=== PATIENT | female | born 1985 | race Caucasian/White ===

== ENCOUNTER 2019-10-26 15:14 | Emergency (ER) | payer MEDICAID ==
[~2019-10-26] VITALS: Ht 160 cm; Wt 118.2 kg
[2019-10-26 15:37] VITALS: Ht 160 cm; Wt 118.2 kg
[2019-10-26] MEDS ORDERED: BUSPAR5 MG (15:39)
[2019-10-26 16:35] LABS: BASOPHILS 0.3 % (0-2); EOSINOPHILS 2.8 % (0-7); HEMATOCRIT 49.2 % (36.0-48.0); IMMATURE GRANULOCYTES 0.2 % (0-5); MCH 29.4 pg (26.0-34.0); MCHC 32.5 g/dL (31.0-37.0); MCV 90.3 fL (80.0-100.0); MEAN PLATELET VOLUME 9.8 fL (7.4-10.4); NEUTROPHILS 60.7 % (40-80); PLATELET COUNT 328 10x3/uL (130-400); RBC 5.45 10x6/uL (4.00-5.40); RDW 13.1 % (11.5-14.5); WBC 10.3 10x3/uL (4.8-10.8)
[2019-10-26 17:20] LABS: BILIRUBIN NEGATIVE (NEGATIVE); GLUCOSE NEGATIVE (NEGATIVE); KETONE NEGATIVE (NEGATIVE); NITRITE NEGATIVE (NEGATIVE); SPECIFIC GRAVITY 1.005 (1.005-1.020); UROBILINOGEN NORMAL (NORMAL)
[2019-10-26 17:30] LABS: CALC OSMOLALITY 269 mosm/kg (275-300); CALCIUM 8.8 mg/dL (8.5-10.1); CARBON DIOXIDE 27.8 mmol/L (21.0-32.0); CHLORIDE - SERUM 99 mmol/L (98-107); CREATININE - SERUM 0.9 mg/dL (0.6-1.3); GLUCOSE 101 mg/dL (74-106); POTASSIUM - SERUM 3.9 mmol/L (3.5-5.1); SODIUM 136 mmol/L (136-145); UREA NITROGEN 6 mg/dL (7-18); eGFR NON AFRICAN AMERICAN 75 mL/min (90-120)
[2019-10-26 17:35] LABS: ALKALINE PHOSPHATASE 97 U/L (30-120); ALT (SGPT) 18 U/L (10-68); BILIRUBIN - TOTAL 0.36 mg/dL (0.2-1.3); LIPASE 115 U/L (73-393); PROTEIN - SERUM 7.9 g/dL (6.4-8.2)
[2019-10-26] MEDS ORDERED: VOLTAREN75 MG PO (19:14)
[2019-10-26] MEDS ORDERED: METHOCARBAMOL750 MG NG (19:14)
[2019-10-26 19:34] VITALS: BP 132/87
== END 2019-10-26 19:35 | disposition home or self-care (01) ==
LOC: D.ER 15:14
PROVIDERS: Emergency Medicine
DX: M54.5 Low back pain (principal); M79.18 Myalgia, other site; R11.2 Nausea with vomiting, unspecified; R63.0 Anorexia